=== PATIENT | female | born 1990 | race Caucasian/White ===

== ENCOUNTER → 2019-08-01 | Outpatient (CLI) | payer OTHER | LOC: COL.RAD 14:59 | DX: R10.9 Unspecified abdominal pain (principal) ==

== ENCOUNTER 2021-11-26 19:34 | Emergency (ER) | payer BC ==
[~2021-11-26] VITALS: Ht 175.3 cm; Wt 70.5 kg
[2021-11-26 19:52] VITALS: BP 139/83; TEMP 97.8
[2021-11-26] MEDS ORDERED: ZOLOFT 100MG100 MG PO (19:55)
[2021-11-26] MEDS ORDERED: PROVENTIL0.09 MG/A1 IH (19:55)
[2021-11-26] MEDS ORDERED: ADIPEX-P37.5 MG PO (19:56)
[2021-11-26] MEDS ORDERED: CRUTCHES MC (21:17)
[2021-11-26 21:51] VITALS: PULSE 92
[2021-11-26] MEDS ORDERED: ZOFRAN ODT4 MG PO (21:52)
== END 2021-11-26 21:50 | disposition home or self-care (01) ==
LOC: COL.ER 19:34
DX: S93.401A Sprain of unspecified ligament of right ankle, initial encounter (principal); Z28.310 Unvaccinated for COVID-19; W10.1XXA Fall (on)(from) sidewalk curb, initial encounter; X50.1XXA Overexertion from prolonged static or awkward postures, initial encounter; Y93.01 Activity, walking, marching and hiking
CPT/HCPCS: L4386